=== PATIENT | female | born 1945 | race Caucasian/White ===

== ENCOUNTER 2020-08-25 09:44 | Outpatient (CLI) | payer MEDICARE, SELFPAY ==
--- NOTE | ~2020-08-25 | US_ITS ---
EXAMINATION: US thyroid DATE: 08/25/2020 10:13 INDICATION: Nontoxic single thyroid nodule. TECHNIQUE: Multiple ultrasound images of the thyroid were obtained. COMPARISON: Ultrasound 11/11/2018, 05/23/2015, 07/11/16 FINDINGS: The right thyroid lobe measures 3.8 x 1.6 x 2.4 cm. The left thyroid lobe measures 4.2 x 2.7 x 3.0 c m. In the right thyroid lobe, there is a 2.2 cm solid, isoechoic, [id number]-wpkn-rlpd nodule with lobul ated margin without echogenic foci (TI-RADS TR5), stable from 05/23/15. In the left thyroid lobe, the re is a 3.8 cm predominantly solid, isoechoic, msxdh-temx-iyrz nodule without echogenic foci (TR3) th at yielded benign pathology at fine-needle aspiration on 06/08/15, stable from 05/23/15. In the left t hyroid lobe, there is a 1.5 cm solid, hypoechoic, fkckk-jlqr-bfqr nodule with ill-defined margin with rim calcifications (TR4), stable from 05/23/15. IMPRESSION: 1. Multinodular goiter, likely benign. No follow-up is needed. Reviewed, dictated and finalized at location B. OLL EXAMINER
== END 2020-08-25 09:45 | disposition home or self-care (01) ==
LOC: ANHIMG 09:47
PROVIDERS: PCP Internal Medicine; Visit Provider Internal Medicine
DX: E04.2 Nontoxic multinodular goiter (principal)
CPT/HCPCS: 76536

== ENCOUNTER → 2023-01-01 08:16 | Outpatient (CLI) | payer MEDICARE, SELFPAY ==
--- NOTE | ~2023-01-01 | US_ITS ---
US breast RT limited DATE: 01/01/2023 08:51 INDICATION: New 4 mm nodule, lower inner quadrant of right breast, reported on November 29, 2022 outside mammogram TECHNIQUE: Targeted right breast ultrasound at 4:00 COMPARISON: November 29, 2022 bilateral mammogram with Tomosynthesis September 07, 2020 bilateral screening mammogram FINDINGS: There is an approximately 2 x 3.6 mm irregular hypoechoic lesion at 4:00. No internal vascu larity or posterior shadowing is noted. The irregular margins however are suspicious. Additionally, ezra doan mammographic mass at similar location on November 29, 2022 mammogram is new finding since September 07, 2020. Ultrasound-guided biopsy is recommended. IMPRESSION: BI-RADS Category 4: Suspicious abnormality; biopsy should be considered Recommendation: Ultrasound-guided biopsy of right breast 4:[address] Pond telephoned the report and ultrasound-guided biopsy recommendation of the right breast 4:00 l esion on January 01, 2023 at 0900 hours to Dinora at Ashia Rhodes' office Reviewed, dictated and finalized at Location A. Reviewed, dictated and finalized at location A. IMPRESSION: BI-RADS Category 4: Suspicious abnormality; biopsy should be consid ered Recommendation: Ultrasound-guided biopsy of right breast 4:[address] Pond telephoned the report and ultrasound-guided biopsy recommendation of ezra doan right breast 4:00 lesion on January 01, 2023 at 0900 hours to Dinora at Ashia cuevas' office
== END ==
PROVIDERS: PCP Internal Medicine; Visit Provider Internal Medicine
DX: R92.8 Other abnormal and inconclusive findings on diagnostic imaging of breast (principal)
CPT/HCPCS: 76642

== ENCOUNTER 2023-01-16 09:30 | Outpatient (CLI) | payer MEDICARE, SELFPAY ==
--- NOTE | ~2023-01-16 | US_ITS ---
US breast RT limited DATE: 01/16/2023 22:08 INDICATION: The patient presented for ultrasound-guided biopsy of 3 mm right 4:00 periareolar mass TECHNIQUE: Real-time and color flow imaging was performed. COMPARISON: 01/01/2023 limited right breast ultrasound FINDINGS: On the current examination the 4:00 periareolar mass appears circumscribed, measuring 2.4 x 3.7 x 2.7 mm. No irregularity or shadowing is noted. There is through transmission. There is no inte rnal vascularity on color flow imaging. The sonographic appearance is most suggestive of benign proce ss. I discussed this with the patient and recommended 6 month follow-up ultrasound imaging targeted a t this area. IMPRESSION: BI-RADS Category 3: Probably benign findings Recommendation: 6 month right targeted 4:00 periareolar ultrasound follow-up is recommended Reviewed, dictated and finalized at Location A. Reviewed, dictated and finalized at location A.
== END 2023-01-16 09:31 | disposition home or self-care (01) ==
LOC: ANHIMG 17:57
PROVIDERS: PCP Internal Medicine; Visit Provider Surgery
DX: R92.8 Other abnormal and inconclusive findings on diagnostic imaging of breast (principal)
CPT/HCPCS: 19083; 76642

== ENCOUNTER 2023-08-14 10:20 | Outpatient (CLI) | payer MEDICARE, SELFPAY ==
--- NOTE | ~2023-08-14 | MMUS_ITS ---
EXAMINATION: MM diagnostic froylan BI w annie, US breast RT limited HISTORY: Follow-up for probably benign right breast mass TECHNIQUE: Craniocaudal, mediolateral, and mediolateral oblique 3-D tomosynthesis images of the evgeny ts were performed and synthetic 2-D images were generated. CAD analysis was submitted and interpreted . High resolution limited right breast ultrasound was performed. COMPARISON: 01/16/2023, 01/01/2023, 11/29/2022, 09/07/2020, 06/12/2019 BREAST PARENCHYMAL COMPOSITION: The breasts are almost entirely fatty. FINDINGS: MAMMOGRAPHIC FINDINGS: Right breast: There is a stable 3 mm round, circumscribed, low density mass in the middle third of th e lower breast at the 4:00 location, 4.5 cm from the nipple. There has been no suspicious interval ch lm. No suspicious calcification or architectural distortion are identified. Left breast: No suspicious mass, calcification, or architectural distortion are identified to suggest malignancy. There has been no suspicious interval change. ULTRASOUND: There is a stable 3 mm x 2 mm oval, circumscribed, parallel, hypoechoic mass with no posterior or int ernal vascularity at the 4:00 location, 3 cm from the nipple. IMPRESSION: 1. Stable, probably benign right breast mass. 2. Given one year of interval stability, recommend 12 month followup bilateral diagnostic mammogram a nd ultrasound. BI-RADS category 3, probably benign findings. Reviewed, dictated and finalized at location A. ETIC COUNSELOR IMPRESSION: 1. Stable, probably benign right breast mass. 2. Given one year of interval stability, recommend 12 month followup bilateral diagnostic mammogram and ultrasound. BI-RADS category 3, probably benign findings.
== END 2023-08-14 10:21 | disposition home or self-care (01) ==
LOC: ANHIMG 10:23
PROVIDERS: PCP Internal Medicine; Visit Provider Surgery
DX: N63.10 Unspecified lump in the right breast, unspecified quadrant (principal); R92.8 Other abnormal and inconclusive findings on diagnostic imaging of breast
CPT/HCPCS: 76642; 77062; 77066; G0279

== ENCOUNTER 2024-03-27 11:21 | Outpatient (CLI) | payer MEDICARE, SELFPAY ==
--- NOTE | ~2024-03-27 | XR_ITS ---
3 VIEWS LUMBAR SPINE Ordering provider: Elbert Rhodes MD History: . M54.50 - Low back pain, unspecified . Comparison: None. FINDINGS: VERTEBRAL BODIES:Retrolisthesis at the level of L1-L2 and L2-L3. Anterolisthesis at the level of L4-L 5. Slight loss of volume of L1 and T12 most likely chronic. Osteopenia of the bones. Otherwise, No vi sible fracture or subluxation. DISK SPACES: Narrowing of the disc T12-L1, L1-L2, L2-3, L4-L5 and L5-S1. Multilevel facet joint disea se. SOFT TISSUES: Aortic calcification. IMPRESSION: No acute osseous abnormality lumbar spine. Retrolisthesis at the level of L1-L2 and L2-L3. Anterolisthesis at the level of L4-L5. Reviewed, dictated and finalized at location A.
--- NOTE | ~2024-03-27 | XR_ITS ---
XR hip RT min 2V 03/27/2024 11:52 Indication: Right hip pain Procedure: 2 views right hip Comparison: No prior studies for comparison. Findings: Severe osteoarthritis of the right hip. No fracture, subluxation or dislocation. No signifi cant soft tissue abnormality. No foreign bodies. Impression: 1: Severe osteoarthritis of the right hip. Reviewed, dictated and finalized at location B. Impression: 1: Severe osteoarthritis of the right hip.
--- NOTE | ~2024-03-27 | XR_ITS ---
XR sacroiliac joints min 3V Ordering provider: Elbert Rhodes MD History: . M54.50 - Low back pain, unspecified . Comparison: None. FINDINGS: BONES: No acute fracture or dislocation. JOINTS: Irregularity of the sacroiliac joints suggestive of sacroiliitis. Bilateral hip osteoarthriti c changes more severe on the right side. Degenerative changes of the spine. SOFT TISSUES: Unremarkable. IMPRESSION: NO ACUTE OSSEOUS ABNORMALITY. BILATERAL SACROILIITIS. Bilateral severe hip osteoarthritic changes. Reviewed, dictated and finalized at location A.
== END 2024-03-27 11:22 | disposition home or self-care (01) ==
LOC: ANHIMG 11:26
PROVIDERS: PCP Internal Medicine; Visit Provider Internal Medicine
DX: M54.50 Low back pain, unspecified (principal); G89.29 Other chronic pain; M16.0 Bilateral primary osteoarthritis of hip
CPT/HCPCS: 72110; 72202; 73502

== ENCOUNTER 2024-04-07 16:17 | Outpatient (RCR) | payer MEDICARE, SELFPAY ==
--- NOTE | 2024-04-07 17:53 | PTOPEVAL1 ---
Assessment and note entered by Kenya Levy DPT Evaluation Information Assessment Status Evaluation Diagnosis low back pain, R hip pain ICD-10 Condition Codes (PT) M54.16 Other ICD-10 Condition Codes ( m54.59 PT) Subjective Information patient reports abut 1.5 years ago she was lifting a mattress and hurt her R hip. She reports she has been going to the chiropractor and pain is on and off but lately she has not had much relief. she reports she is due for a revision of her L knee. She reports that pain varies and changes location. She reports she has pain in the groin and into the hamstring with radiating pain down to the ankle. she reports she does water aerobics for exercises. she reports pain is worse when she gets up in the morning. she reports that she will wake in the middle of the night and sitting in a chair decreases pain. she reports difficulty with getting off the toilet and getting out of a chair. she feels like she limps. Reported Pain Level Pain Score 2: Self Report Assessment PT Clinical Summary Mrs. Matute is a 78 year old female who presents to PT with low back pain that radiates to the R hip and LE. She demonstrates decreased R hip abduction , decreased lumbar mobility, decreased B LE strength and hip and lumbar arthritic changes as evidenced in x-ray imaging. She reports difficulty with getting up out of a chair, standing for long periods of time and prolonged ambulation. She would benefit from skilled PT to address impairments and return to PLOF. Plan of Care Interventions Electrical Stimulation,Gait Training,Hot Pack/Cold Pack,Manual Therapy,Mechanical Traction,Neuro Re- education,Patient/Caregiver Educati,Therapeutic Activities,Therapeutic Exercise PT Services Indicated Yes Treatment Frequency and 3x weekly for 12 visits Duration These treatments will address the objective and functional deficits as defined above. The patient will be advanced safely and appropriately in order for the patient to progress towards his/her prior level of function. Additional exercises will be introduced and as well as a comprehensive home exercise program upon discharge, if needed, ?to ensure carryover of functional gains achieved in the clinic. This treatment plan has been reviewed and agreement upon by the patient.
--- NOTE | 2024-04-29 09:26 | PTOPPROG ---
Assessment and note entered by Kane Andujar Evaluation Information Assessment Status Progress Diagnosis low back pain, right hip pain ICD-10 Condition Codes (PT) Pain in low back M54.50,Pain in right hip M25.551 Other ICD-10 Condition Codes ( m54.59 PT) Subjective Information Pt. reports she is doing better. She notices pain is less intense at the right buttock, but still present. She states that she is using her cane less, and uses mostly when she is flared up. She states that she still notices stiffness in the hip and states that she can now stand for duration of about 15-20 minutes to complete household duties. Assessment PT Clinical Summary Mrs. Matute is a 78 year old female who presents to PT with low back pain that radiates to the R hip and LE. She demonstrates decreased R hip abduction , decreased lumbar mobility, decreased B LE strength and hip and lumbar arthritic changes as evidenced in x-ray imaging. She reports difficulty with getting up out of a chair, standing for long periods of time and prolonged ambulation. She would benefit from skilled PT to address impairments and return to PLOF. Plan of Care Interventions Electrical Stimulation,Gait Training,Hot Pack/Cold Pack,Manual Therapy,Mechanical Traction,Neuro Re- education,Patient/Caregiver Educati,Therapeutic Activities,Therapeutic Exercise PT Services Indicated Yes Treatment Frequency and 3x weekly for 12 visits Duration These treatments will address the objective and functional deficits as defined above. The patient will be advanced safely and appropriately in order for the patient to progress towards his/her prior level of function. Additional exercises will be introduced and as well as a comprehensive home exercise program upon discharge, if needed, ?to ensure carryover of functional gains achieved in the clinic. This treatment plan has been reviewed and agreement upon by the patient.
--- NOTE | 2024-05-11 14:34 | PTOPDC ---
Assessment and note entered by Kane Andujar Evaluation Information Assessment Status Discharge Diagnosis low back pain, right hip pain ICD-10 Condition Codes (PT) Pain in low back M54.50,Pain in right hip M25.551 Other ICD-10 Condition Codes ( m54.59 PT) Subjective Information Pt. reports she is doing much better than before therapy. She states that she is able to stand longer and notices that the right leg is moving better. She notes improved mobility in water aerobics and is able to participate in more activities without pain. She states that she was able to mop the floor several days ago and did experience pain after, but much less intense than in the past. She reports she will continue with her HEP and is ready for discharge. Reported Pain Level Pain Score 1: Self Report Assessment PT Clinical Summary Pt. demonstrates improvements in pain reports and strength on this date. she continues to experience pain, but much less intense. At this time she is encouraged to continue with her HEP and will be discharged from our care. Plan of Care PT Services Indicated No
== END 2024-05-11 15:03 | disposition home or self-care (01) ==
LOC: CHSPT 16:17
PROVIDERS: Visit Provider Nurse Practitioner Family
DX: M54.16 Radiculopathy, lumbar region (principal); M54.59 Other low back pain
CPT/HCPCS: 97014; 97110; 97140; 97161; 97530; G0283

== ENCOUNTER 2024-04-28 08:47 | Outpatient (CLI) | payer MEDICARE, SELFPAY ==
--- NOTE | ~2024-04-28 | MMUS_ITS ---
EXAMINATION: MM diagnostic froylan RT w annie, US breast RT limited HISTORY: Palpable right breast mass TECHNIQUE: Additional 3-D tomosynthesis images of the right breast were performed and synthetic 2-D i mages were generated. CAD analysis was submitted and interpreted. High resolution Limited right breas t ultrasound was performed. COMPARISON: Comparison to multiple prior studies sequentially, with oldest reviewed study dated 02/19. BREAST PARENCHYMAL COMPOSITION: Not dense: There are scattered areas of fibroglandular density. FINDINGS: MAMMOGRAPHIC FINDINGS: There are no suspicious masses, calcifications or architectural distortion in the right breast to sug gest malignancy. ULTRASOUND: Limited right breast ultrasound: Normal heterogeneous echotexture without focal solid or cystic mass. IMPRESSION: 1. No evidence for malignancy in the right breast. 2. Routine yearly screening mammogram and regular clinical breast examination are recommended. BI-RADS Category 1: Negative Reviewed, dictated and finalized at location B. IMPRESSION: 1. No evidence for malignancy in the right breast. 2. Routine yearly screening mammogram and regular clinical breast examination a re recommended. BI-RADS Category 1: Negative
== END 2024-04-28 08:48 | disposition home or self-care (01) ==
LOC: MICIMG 08:47
PROVIDERS: PCP Internal Medicine; Visit Provider Surgery
DX: N63.10 Unspecified lump in the right breast, unspecified quadrant (principal); R92.8 Other abnormal and inconclusive findings on diagnostic imaging of breast
CPT/HCPCS: 76642; 77061; 77065; G0279

== ENCOUNTER 2024-06-17 11:00 | Outpatient (RCR) | payer MEDICARE, SELFPAY ==
--- NOTE | 2024-06-17 11:51 | OPREHPOC ---
Outpatient Therapy Plan of Care This is a Multidisciplinary Plan of Care that may contain components documented by all disciplines (PT, OT, and ST.) PT Problem 1 PT Problem #1 Knowledge Deficit PT Goal 1 Goal / Goal Update The patient will be independent in a home exercise program. Target Visit 1 Progress Met PT Problem 2 PT Problem #2 Impaired Gait PT Goal 1 Goal / Goal Update The patient will demonstrate gait with a SPC with good mechanics x 200 feet. Target Visit 1 Progress Met PT Problem 3 PT Problem #3 Impaired Functional Mobil
--- NOTE | 2024-06-17 11:51 | PTOPEVAL1 ---
Assessment and note entered by Luciana Delarosa, PT Evaluation Information Assessment Status Evaluation ICD-10 Condition Codes (PT) Pain in right hip M25.551 Subjective Information Angela Matute reports she started using a cane more over the last month due to her right hip hurting. She participated in PT at this location for right hip pain and she did get less pain in her hip. She went to her orthopedic surgeon for a consult for her right hip to be replaced and her doctor wanted her to come to PT to learn how to use her cane properly. She reports she does not use the cane all the time just when her hip is more painful, when she leaves the home, and when she feels off balance. She did not use her cane when she was coming to PT. She goes to water aerobics twice a week. Reported Pain Level Pain Score 0: Self Report Assessment PT Clinical Summary Angela Matute presents with right hip pain secondary to OA. She has participated in skilled PT at this location for 13 visits with discharge on 06/11/24. She did not use a cane at that time but has started using one more frequently so her orthopedic surgeon referred her to PT for one visit for gait training. She was educated in use of a SPC for ambulation using a step to gait pattern and demonstrates good mechanics and balance with the cane. She was discharged. Plan of Care Interventions Gait Training,Patient/Caregiver Educati PT Services Indicated Yes Treatment Frequency and 1 visit Duration These treatments will address the objective and functional deficits as defined above. The patient will be advanced safely and appropriately in order for the patient to progress towards his/her prior level of function. Additional exercises will be introduced and as well as a comprehensive home exercise program upon discharge, if needed, ?to ensure carryover of functional gains achieved in the clinic. This treatment plan has been reviewed and agreement upon by the patient.
== END 2024-06-17 12:27 | disposition home or self-care (01) ==
LOC: CHSPT 11:00
PROVIDERS: Visit Provider Orthopaedic Surgery
DX: M16.11 Unilateral primary osteoarthritis, right hip (principal)
CPT/HCPCS: 97116; 97161

== ENCOUNTER 2024-08-13 00:41 | Day surgery (SDC) | payer MEDICARE, SELFPAY ==
[2024-07-27 09:19] VITALS: BMI 40.4
[2024-08-13 08:02] VITALS: BP 118/70; PULSE 95; RESP 18; TEMP 35.9; O2SAT 100; BMI 39.2
[2024-08-13] MEDS: LACTATED RINGERS 1,000 ML 150 ML IV CONT (08:25)
[2024-08-13 08:35] LABS: Glucose Point of Care 91 mg/dl (65-105)
--- NOTE | 2024-08-13 08:40 | P.PNAN_ITS ---
Anes - Initial Pre Proc Eval Procedure: Operation Date: 08/13/24 09:30 Proposed Procedures p Screening Colonoscopy - Jayjay Rosas MD Date/Time: 08/13/24 08:40 Surgeon: Jayjay Rosas MD Pre Op Diagnosis: Screening for malignant neoplasm of colon Patient Data Age: 79 Gender: F Height: 1.47 m Weight: 85.1 kg Last Vital Signs Temp 35.9 C L 08/13/24 08:02 Pulse 95 08/13/24 08:02 Resp 18 08/13/24 08:02 BP 118/70 08/13/24 08:02 Pulse Ox 100 08/13/24 08:02 O2 Del Method Room Air 08/13/24 08:02 Allergies Allergy/AdvReac Type Severity Reaction Status Date / Time No Known Allergies Allergy Verified 08/13/24 08:18 Home Medications ?Medication ?Instructions ?Recorded ?Confirmed ?Type aspirin 81 mg tablet,delayed 81 mg PO DAILY 06/05/19 08/13/24 History release blood-glucose meter (Blood Glucose #1 ea 07/10/19 06/23/24 Rx Monitoring kit) cholecalciferol (vitamin D3) 25 1,000 unit PO DAILY 07/10/19 08/13/24 History mcg (1,000 unit) capsule folic acid 800 mcg tablet 0.8 mg PO DAILY #90 tabs 11/12/19 08/13/24 Rx mecobalamin (vitamin B12) 1,000 1,000 mcg PO DAILY #30 tabs 11/12/19 08/13/24 Rx mcg chewable tablet multivitamin 1 tablet PO DAILY 03/14/20 08/13/24 History zinc gluconate 30 mg tablet 30 mg PO DAILY 08/04/20 08/13/24 History acetaminophen 500 mg tablet 500 mg PO Q6H PRN pain 03/25/23 08/13/24 History (Tylenol Extra Strength) lancets 28 gauge (TRUEplus Lancets) #100 ea 09/09/23 06/23/24 Rx biotin 10,000 mcg chewable tablet 10,000 mcg PO DAILY hair, skin, 12/31/23 08/13/24 History (Hair, Skin and Nails (biotin)) and nails fish oil 4,000 units BYMOUTH BID 12/31/23 08/13/24 History blood sugar diagnostic (True #100 strips 01/27/24 06/23/24 Rx Metrix Glucose Test Strip) empagliflozin 5 mg-metformin ER See Rx Instructions .Route 03/02/24 08/13/24 Rx 1,000 mg tablet,extended release .COMPLEX #90 tabs 24 hr (Synjardy XR) Synthroid 50 mcg tablet See Rx Instructions .Route 03/31/24 08/13/24 Rx (levothyroxine) .COMPLEX #90 tabs atorvastatin 40 mg tablet See Rx Instructions .Route 03/31/24 08/13/24 Rx .COMPLEX #90 tabs losartan 50 mg-hydrochlorothiazide See Rx Instructions .Route 03/31/24 08/13/24 Rx 12.5 mg tablet .COMPLEX #90 tabs fluticasone propionate 50 See Rx Instructions .Route 08/09/24 08/13/24 Rx mcg/actuation nasal .COMPLEX #48 mL spray,suspension Laboratory Tests 08/13/24 08:26 POC Capillary Glucose 91 mg/dl (65-105) Patient hx anesthesia problems: none Family hx anesthesia problems: none Results Review: All pre-operative results and documents have been reviewed as part of the pre- operative evaluation. COUNTS INCLUDE 234 BEDS AT THE [facility] Past Medical History Medical History Abnormal finding of blood chemistry BMI 39.0-39.9,adult Body mass index (BMI) 40.0-44.9, adult Cataracts, bilateral Chronic low back pain Colon cancer screening Cough Diabetes DJD (degenerative joint disease), multiple sites Encounter for Medicare annual wellness exam Encounter for routine adult health examination without abnormal findings GERD (gastroesophageal reflux disease) Hearing loss Hyperlipidemia Hypertension Hypothyroid Multinodular goiter On intermediate manager drug therapy Rash Thyroid nodule Urinary incontinence Vaginal itching Vitamin D deficiency Family History Family History Sibling Carcinoma of colon Father Acute myocardial infarction Mother Family history of malignant neoplasm Social History Social History (Updated 06/10/24 @ 10:46 by Charlotte Mcgowan CMA) Smoking status: Never smoker Alcohol intake: current Substance use: never Substance use type: does not use Do You Feel Safe in your Home?: Yes Lack of Transportation: No Lack of Food: Never True Current Housing: I Have Housing Concerned About Future Housing: No Difficulty Paying Gas/Electric Bills: No Difficulty Paying for Meds: No Currently Unemployed: No Education: Trade/Vocational Certificate Difficulty w/ Childcare or Family Care: No Living arrangements: with family Gender identity (if verbalized by the patient): Female Spiritual care concerns: No Anes - Eval Final PreProcedure Day of Procedure 08/13/24 08:40 Patient weight: obese Heart: regular rate and rhythm Lungs: clear to auscultation Airway: Mallampati scale class II Neurological: alert and oriented Last oral intake: >/= 8 hours ASA classification: III Emergent: no Anesthetic plan: proceed Anesthesia type and monitoring: general GIVS and standard monitoring Results Review: All pre-operative results and documents have been reviewed as part of the pre- operative evaluation. Informed Consent: The patient's anesthetic plan and its attendant risks and benefits were discussed with the patient/family/POA. Questions were solicited and answers provided to the satisfaction of the patient/family/POA.
--- NOTE | 2024-08-13 08:59 | P.HP_ITS ---
H&P: HPI History of Present Illness Date/Time: 08/13/24 08:59 Chief Complaint: Screening colonoscopy Narrative: This patient has family history of colorectal cancer. Her sister had a pre malignant polyp surgically resected several years ago. she has been undergoing colonoscopy every 5 years, but has never had polyps herself. Review of Systems Review of Systems: All systems reviewed & are unremarkable except as noted in HPI and below PMFSH Past Medical History Medical History (Reviewed 06/10/24 @ 10:23 by Sena Schrader [facility]) Abnormal finding of blood chemistry BMI 39.0-39.9,adult Body mass index (BMI) 40.0-44.9, adult Cataracts, bilateral Chronic low back pain Colon cancer screening Cough Diabetes DJD (degenerative joint disease), multiple sites Encounter for Medicare annual wellness exam Encounter for routine adult health examination without abnormal findings GERD (gastroesophageal reflux disease) Hearing loss Hyperlipidemia Hypertension Hypothyroid Multinodular goiter On custodial drug therapy Rash Thyroid nodule Urinary incontinence Vaginal itching Vitamin D deficiency Family History Family History (Reviewed 06/10/24 @ 10:23 by Sena Schrader [facility]) Sibling Carcinoma of colon Father Acute myocardial infarction Mother Family history of malignant neoplasm Social History Social History (Updated 06/10/24 @ 10:46 by Charlotte Mcgowan CMA) Smoking status: Never smoker Alcohol intake: current Substance use: never Substance use type: does not use Do You Feel Safe in your Home?: Yes Lack of Transportation: No Lack of Food: Never True Current Housing: I Have Housing Concerned About Future Housing: No Difficulty Paying Gas/Electric Bills: No Difficulty Paying for Meds: No Currently Unemployed: No Education: Trade/Vocational Certificate Difficulty w/ Childcare or Family Care: No Living arrangements: with family Gender identity (if verbalized by the patient): Female Spiritual care concerns: No Meds Home Medications and Allergies Home Medications ?Medication ?Instructions ?Recorded ?Confirmed ?Type aspirin 81 mg tablet,delayed 81 mg PO DAILY 06/05/19 08/13/24 History release blood-glucose meter (Blood Glucose #1 ea 07/10/19 06/23/24 Rx Monitoring kit) cholecalciferol (vitamin D3) 25 1,000 unit PO DAILY 07/10/19 08/13/24 History mcg (1,000 unit) capsule folic acid 800 mcg tablet 0.8 mg PO DAILY #90 tabs 11/12/19 08/13/24 Rx mecobalamin (vitamin B12) 1,000 1,000 mcg PO DAILY #30 tabs 11/12/19 08/13/24 Rx mcg chewable tablet multivitamin 1 tablet PO DAILY 03/14/20 08/13/24 History zinc gluconate 30 mg tablet 30 mg PO DAILY 08/04/20 08/13/24 History acetaminophen 500 mg tablet 500 mg PO Q6H PRN pain 03/25/23 08/13/24 History (Tylenol Extra Strength) lancets 28 gauge (TRUEplus Lancets) #100 ea 09/09/23 06/23/24 Rx biotin 10,000 mcg chewable tablet 10,000 mcg PO DAILY hair, skin, 12/31/23 08/13/24 History (Hair, Skin and Nails (biotin)) and nails fish oil 4,000 units BYMOUTH BID 12/31/23 08/13/24 History blood sugar diagnostic (True #100 strips 01/27/24 06/23/24 Rx Metrix Glucose Test Strip) empagliflozin 5 mg-metformin ER See Rx Instructions .Route 03/02/24 08/13/24 Rx 1,000 mg tablet,extended release .COMPLEX #90 tabs 24 hr (Synjardy XR) Synthroid 50 mcg tablet See Rx Instructions .Route 03/31/24 08/13/24 Rx (levothyroxine) .COMPLEX #90 tabs atorvastatin 40 mg tablet See Rx Instructions .Route 03/31/24 08/13/24 Rx .COMPLEX #90 tabs losartan 50 mg-hydrochlorothiazide See Rx Instructions .Route 03/31/24 08/13/24 Rx 12.5 mg tablet .COMPLEX #90 tabs fluticasone propionate 50 See Rx Instructions .Route 08/09/24 08/13/24 Rx mcg/actuation nasal .COMPLEX #48 mL spray,suspension Allergies Allergy/AdvReac Type Severity Reaction Status Date / Time No Known Allergies Allergy Verified 08/13/24 08:18 Vital Signs Vital Signs - 24 hr 08/13/24 08:02 Temperature 96.7 F L Pulse Rate 95 Respiratory Rate 18 Blood Pressure 118/70 Pulse Oximetry 100 Oxygen Delivery Room Air Exam Const: General: cooperative and healthy appearing Resp: Effort & Inspection: normal respiratory effort and able to speak in complete sentences Auscultation: clear to auscultation bilaterally Cardio: Rate: regular rate Rhythm: regular rhythm GI: Inspection: normal to inspection GI Palp: No No hepatosplenomegaly present Auscultation: normal bowel sounds Rectal Exam: deferred Skin: General skin exam: normal color Psych: Appearance: grossly normal Mental Status: mental status grossly no rmal Assessment and Plan Assessment and plan (1) Family hx of colon cancer: Code(s): Z80.0 - Family history of malignant neoplasm of digestive organs Status: Acute Assessment and Plan: The patient is deemed a good candidate for the procedure. Consent signed. Will proceed.
[2024-08-13 09:24] VITALS: BP 102/65; PULSE 86; RESP 19; O2SAT 97
[2024-08-13 09:34] VITALS: BP 119/61; PULSE 91; RESP 25; O2SAT 100
[2024-08-13 09:44] VITALS: BP 118/67; PULSE 71; RESP 20; O2SAT 100
== END 2024-08-13 10:02 | disposition home or self-care (01) ==
PROVIDERS: PCP Internal Medicine; Visit Provider Internal Medicine Gastroenterology
PROC: 0DJD8ZZ Inspection of Lower Intestinal Tract, Via Natural or Artificial Opening Endoscopic (ICD-10-PCS; CPT 45378; principal; 2024-08-13 09:30)
DX: Z12.11 Encounter for screening for malignant neoplasm of colon (principal); D12.2 Benign neoplasm of ascending colon; D12.4 Benign neoplasm of descending colon; E78.5 Hyperlipidemia, unspecified; I10 Essential (primary) hypertension; E03.9 Hypothyroidism, unspecified; E55.9 Vitamin D deficiency, unspecified; E11.9 Type 2 diabetes mellitus without complications; K21.9 Gastro-esophageal reflux disease without esophagitis; M54.50 Low back pain, unspecified; G89.29 Other chronic pain; M15.9 Polyosteoarthritis, unspecified; R32 Unspecified urinary incontinence; E66.9 Obesity, unspecified; Z68.39 Body mass index [BMI] 39.0-39.9, adult; Z79.82 Long term (current) use of aspirin; Z79.84 Long term (current) use of oral hypoglycemic drugs; Z79.899 Other long term (current) drug therapy; Z80.0 Family history of malignant neoplasm of digestive organs; Z82.49 Family history of ischemic heart disease and other diseases of the circulatory system
CPT/HCPCS: 45385; 82948; 88305; J2003; J2704; J7120

== ENCOUNTER 2024-08-17 09:43 | Outpatient (CLI) | payer MEDICARE, SELFPAY ==
--- NOTE | ~2024-08-17 | MM_ITS ---
EXAMINATION: MM screening [facility] BI w annie HISTORY: Screening mammogram TECHNIQUE: Craniocaudal and mediolateral oblique 3-D tomosynthesis images were obtained and synthetic 2-D images were generated. CAD analysis was submitted and interpreted. COMPARISON: 04/28/2024, 08/14/2023, 11/29/2022, 09/07/2020 BREAST PARENCHYMAL COMPOSITION:Not Dense. There are scattered areas of fibroglandular density. FINDINGS: No suspicious mass, calcification, or architectural distortion are identified in either marley ast to suggest malignancy. There has been no suspicious interval change. IMPRESSION: No mammographic evidence of malignancy. Recommend routine screening mammography in one year. BI-RADS Category 1: Negative Reviewed, dictated and finalized at location . 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
== END 2024-08-17 09:44 | disposition home or self-care (01) ==
LOC: CHSIMG 09:45
PROVIDERS: PCP Internal Medicine; Visit Provider Surgery
DX: Z12.31 Encounter for screening mammogram for malignant neoplasm of breast (principal)
CPT/HCPCS: 77063; 77067

== ENCOUNTER 2024-08-31 07:32 | Outpatient (CLI) | payer MEDICARE, SELFPAY ==
--- NOTE | ~2024-08-31 | NM_ITS ---
EXAMINATION: NM ranjit stress w perfusion DATE: 08/31/2024 10:53 SHAREPOINT TRAINER INDICATION: Abnormal EKG TECHNIQUE: Rest images were obtained following intravenous administration of 11.5 mCi Tc99m tetrofosm in (Myoview). The patient was infused intravenously with Lexiscan (regadenoson). Then, 34 mCi Tc99m t etrofosmin (Myoview) was administered intravenously, and stress images were obtained. Data was recons tructed into short axis and horizontal and vertical long axis SPECT images. Gated SPECT images were a lso obtained. COMPARISON: None. FINDINGS: There is no definite reversible or fixed perfusion abnormality to suggest ischemia or infar ction. There is no segmental wall motion abnormality. Left ventricular ejection fraction measures 9 0%. IMPRESSION: 1. No definite ischemia or infarct. 2. Normal left ventricular ejection fraction measuring 90%. Reviewed, dictated and finalized at location A. EPOINT TRAINER
--- NOTE | 2024-08-31 07:44 | EST_ITS ---
Patient Info Name: Angela Matute Age: 79 years : 1945 Gender: Female Ht: 58 in Wt: 183 lbs BSA: 1.89 m2 HR: 87 bpm BP: 124 / 71 mmHg Exam Date: 08/31/2024 8:44 AM Exam Location: Echo Lab Patient Status: Outpatient Admit Date: 08/31/2024 Staff Ordering Physician: Elbert Rhodes MD Attending Provider: Elbert Rhodes MD Exercise Technologist: [place] [employer]IAN Exercise Physician: Edgar Brown DO Exam Type: CA stress ranjit w NM Study Info A regadenoson stress test was performed. Summary 1. 1. Negative lexiscan stress test for ischemic ST changes by ECG criteria. 2. 2. Stable hemodynamics throughout the test. 3. 3. Nuclear scan to follow and will be reported separately. Please correlate with it. 4. 4. Patient informed of the above results. Protocol: Lexiscan Stress ECG Details Stage: REST Duration (min): 0 min : 44 sec HR (bpm): 86 SBP (mmHg): 124 DBP (mmHg): 71 Stage: REST Duration (min): 6 min : 12 sec HR (bpm): 86 SBP (mmHg): 124 DBP (mmHg): 71 Stage: STAGE 1 Duration (min): 0 min : 59 sec HR (bpm): 99 SBP (mmHg): 123 DBP (mmHg): 67 Stage: RECOVERY Duration (min): 1 min : 0 sec HR (bpm): 106 SBP (mmHg): 123 DBP (mmHg): 67 Stage: RECOVERY Duration (min): 1 min : 19 sec HR (bpm): 106 SBP (mmHg): 123 DBP (mmHg): 67 Rest HR: 86 bpm Peak HR: 108 bpm Rest Sys BP: 124 mmHg Peak Sys BP: 123 mmHg Max Pred HR: 143 bpm % Max Pred HR: 76 % Target HR: 122 bpm Max RPP: 13,284 bpm*mmHg Termination Reason: Completed protocol Cardiac Symptoms: Shortness of breath Total Time: 1 min : 0 sec Rest Joseph BP: 71 mmHg Peak Joseph BP: 67 mmHg Total Dose: 0.4 mg Resting ECG Sinus rhythm. Stress ECG No ST changes. Arrhythmias None. Report Signatures
== END 2024-08-31 07:33 | disposition home or self-care (01) ==
PROVIDERS: PCP Internal Medicine; Visit Provider Internal Medicine
DX: R94.31 Abnormal electrocardiogram [ECG] [EKG] (principal)
CPT/HCPCS: 78452; 93017; A9502; J2785

== ENCOUNTER 2025-02-24 09:28 | Outpatient (CLI) | payer MEDICARE, SELFPAY ==
--- NOTE | ~2025-02-24 | DEXA_ITS ---
Bone Density Report Name: VAUGHN MARCELO Age: 79 Sex: Female Ethnicity: White Date of : 1945 Indication: postmenopausal; screening for osteoporosis; Referring Provider: IAN PONCE Study: Bone densitometry was performed. Exam Date: February 24, 2025 Accession number: [id number] Bone Density: Region BMD T-score Z-score Classification AP Spine(L1-L4) 1.047 0.0 2.5 Normal Femoral Neck (Left) 0.814 -0.3 1.9 Normal Total Hip (Left) 0.920 -0.2 1.7 Normal World Health Organization criteria for BMD impression classify patients as: Normal (T-score at or above -1.0), Osteopenia (T-score between -1.0 and -2.5), or Osteoporosis (T-score at or below -2.5). 10-year Fracture Risk: FRAX not reported because: All T-scores for Spine Total, Hip Total, Femoral Neck at or above -1.0 Clinical Information Provided by Patient: Patient maximum height was 58 Menopause Age: 60 Drinks caffeinated beverages Onset of menses at age 14 Number of children 3 Impression: The patient has normal bone mass. Discussion: BONE DENSITY IS ABOVE THE MINIMUM DESIRABLE LEVEL AT ALL SKELETAL SITES TESTED. This patient?s bone mineral density is above the minimum desirable level (T-score -1.0 or better) at all sites measured. The patient should follow a healthful lifestyle (good nutrition with adequate calcium and vitamin D, and appropriate weight-bearing exercise). Follow-Up: Consider repeating this study in 5 years or sooner if there is some new clinical indication. Reported by: SEN on 02/24/2025 9:53:00 AM. Reviewed, dictated and finalized at location A.
--- OUTSIDE RECORDS SUMMARY | 2025-02-24 09:43 | XMS_ITS | Encounter Summary ---
Author Organization [facility] Address [address] [place] [address] Care Team Providers Care Color Television Console Monitor Name Role Phone Octavio Keys MD Unavailable [phone] Elbert Rhodes MD Primary Care Provider [phone] Encounter Details Date Type Department Care Team (Late st Contact Info) Description 11/30/2015 Therapy Visit [facility] Orthopedics [address] [facility] [address] [place] [address] [place] [address] [facility] [address] [place] [address] Social History Tobacco Use Types Packs/Day Years Used Date Smoking Tobacco: Never Smokeless Tobacco: Never Alcohol Use Standard Drinks/Week Comments No 0 (1 standard drink = 0.6 oz pur e alcohol) Comments No Sex and Gender Information Value Date Recorded Sex Assigned at Not on file 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 Answer Date of Assessment Author No 11/09/2015 2:05 PM CDT Trell Chen RN * Is person blind or have serious difficulty seeing? Answer Date of Assessment Author No 11/09/2015 2:05 PM CDT Trell Chen RN * Does person have serious difficulty walking/climbing stairs? Answer Date of Assessment Author No 11/09/2015 2:05 PM WILBERTT Trell Chen RN * Does person have difficulty dressing/bathing? Answer Date of Assessment Author No 11/09/2015 2:05 PM CDT Trell Chen RN * Does person have difficulty doing errands alone? Answer Date of Assessment Author No 11/09/2015 2:05 PM Trell Starr RN documented as of this encounter Mental Status * Does person have difficulty concentrating/remembering/making decisions? Answer Entry Date Author No 11/09/2015 2:05 PM Trell Starr RN documented in this encounter Plan of Treatment Not on file documented as of this encounter Visit Diagnoses Not on filedocumented in this encounter Care Teams Color Television Console Monitor Relationship Specialty Start Date End Date Elbert Rhodes MD [address] [place] [address] [phone] PCP - General Internal Medicine 10/16/24 [place] [address] [facility] [address] [place] [id number] Orthopedic Surgery 05/05/15 documented as of this encounter
--- OUTSIDE RECORDS SUMMARY | 2025-02-24 09:43 | XMS_ITS ---
Author Organization [facility] Address [address] [facility] [address] [place], [place] [id number] Care Team Providers Care Diathermy Equipment Repairer Name Role Phone RAFI NICKY Unavailable [phone] Elbert Rhodes Unavailable Unavailable Allergies No Known Allergies REASON FOR VISIT *General care Medications Medication SIG (Take, Route, Frequency, Duration) Notes Start Date End Date Status Atorvastatin Calcium 40 MG Oral; Duration: 90 Days Active Fluticasone Propionate 50 MCG/ACT USE 2 SPRAYS IN EACH NOSTRIL EVERY DAY Nasal; Duration: 90 Days Active Losartan Potassium-HCTZ 50-12.5 MG Oral; Duration: 90 Days Acti ve Synthroid 50 MCG TAKE 1 TABLET BY RICCARDO TH EVERY DAY Oral; Duration: 90 Days Active Synjardy XR 5-1000 MG Oral; Duration: 90 Days Active Vital Signs Height 59.00 in 02/11/2025 Weight 205 lbs 02/11/2025 BMI 41.4 kg/m2 02/11/2025 Height-cm 149.86 cm 02/11/2025 Weight-kg 92.99 kg 02/11/2025 Encounters Encounter Location Date Provider Diagnosis [facility] [address] [place], [place] [id number] 02/11/2025 NICKY VILLAFANA Onychomycosis B35.1 ; Pain in right toe(s) M79.674 ; Pain in left toe(s) M79.675 and Unspecified atherosclerosis of [place] arteries of extremities, bilateral legs I70.203 Assessments Encounter Date Diagnosis (ICD Code) Assessment Notes Treatment Notes Treatment Clinical Notes Section Notes 02/11/2025 Onychomycosis (ICD-10 - B35.1) 02/11/2025 Pain in right toe(s) (ICD-10 - M79.674) 02/11/2025 Pain in left toe(s) (ICD-10 - M79.675) 02/11/2025 Unspecified atherosclerosis of [place] arteries of extremities, bilateral legs (ICD-10 - I70.203) 02/11/2025 Other Nails 1-5 Bilateral were debrided extensively with nail nippers and emery board, reducing length and girth to pink healthy tissue with any subungual debris and necrotic tissue removed Plan Of Treatment Treatment Notes Assessment Notes Other Nails 1-5 Bilateral were debrided extensively with nail nippers and emery board, reducing length and girth to pink healthy tissue with any subungual debris and necrotic tissue removed Next Appt Details Provider Name:NICKY REVELES, 04/15/2025 10:20:00 AM, [address], [address], [phone], Progress Notes * VAUGHN MARCELO KekeDOB:1945 (79 yo F)Acc No.[id number]:02/11/2025 Patient: VAUGHN ABDALLA Provider: Vanesa Villafana DPM :1945 A ge:79 Y S ex:Female Date:02/11/2025 Address:[address] [place], [place] [id number] Subjective: * Chief Complaints: * 1 . *General care. * HPI: H PI: General care P atient presents to the office for diabetic foot care. Patient states that their nails are thickened, elongated and painful. Patient states that it is aggravated by shoe gear. Onset is gradual. Patient denies taking prescription blood thinners but does take a daily aspirin. Date last seen by Dr. Meagan murray as 02/2025. Initials sea. * ROS: G eneral / Constitutional: Patient denies c hange in appetite, fatigue, chills, fever.? C ardiovascular: Chest pain d enies. N eurologic: Loss of use of extremity d enies. * Medical History: D iabetic. * Family History: F ather: PRN - Father: :: Hypertension,,known absent , :: Congenital heart disease,,known absent , :: Diabetes,,known absent ,PRN - Father: :: Stroke,,known absent , :: Hypertension,,known absent , :: Diabetes,,known absent . M other: PRN - Mother: ,PRN - Mother: :: Cancer,,known absent .?Brother: SIB - Brother: . S ister: SIB - Sister: . * Social History: M igrated Social History: M igrated Social History: History of tobacco use : , Smoking Status : Never smoked. * Medications: T aking Atorvastatin Calcium 40 MG Tablet Oral , Taking Losartan Potassium-HCTZ 50-12.5 MG Tablet Oral , Taking Fluticasone Propionate 50 MCG/ACT Suspension USE 2 SPRAYS IN EACH NOSTRIL EVERY DAY Nasal , Taking Synjardy XR 5-1000 MG Tablet Extended Release 24 Hour Oral , Taking Synthroid 50 MCG Tablet TAKE 1 TABLET BY MOUTH EVERY DAY Oral , Medication List reviewed and reconciled with the patient * Allergies: N .K.D.A. Objective: * Vitals: W t: 205 lbs, Wt-k.99 kg, Ht: 59.00 in, Ht-cm: 149.86 cm, BMI: 41.4 Index, Body Surface Area: 1.97. * Examination: P hysical Examination: Gen: T he patient is awake, alert, well developed, well groomed and well nourished. They are in no apparent distress. . Musc: F oot structure is normal bilateral. Muscle strength is 5/5 to all joints bilaterally. There is no pain on palpation. . Derm: T here is absent hair growth on bilateral feet. There are pigmentary changes of bilateral foot. The skin color is red. The skin texture is thin and shiny. Distal cooling noted in bilateral feet. Nails are thick, discolored, and dystrophic with subungual debris. They are painful to palpation. . Neuro: G rossly intact to light touch bilateral . Vasc: P osterior tibialis pulse 0/4 bilaterally. Dorsalis pedis pulse 0/4 bilaterally. No edema noted. Capillary fill time > 3 seconds to all digits. . Assessment: * Assessment: 1. O nychomycosis - B35.1 (Primary) 2 . P ain in right toe(s) - M79.674? 3. P ain in left toe(s) - M79.675 4 . U nspecified atherosclerosis of [place] arteries of extremities, bilateral legs - I70.203 Plan: * Treatment: * Procedure Codes: 1 1721 DEBRIDE NAIL, 6 OR MORE, Modifiers: Q8 * Billing Information: * Visit Code: * Procedure Codes: 61493 DEBRIDE NAIL, 6 OR MORE. Modifiers: Q8 * Electronic signature of NICKY VILLAFANA DPM on 02/24/2025 at 09:43 AM CDT Sign off status: Pending * Provider: Vanesa Villafana DPM Date: 0 02/11/2025 Generated for Reyes Fleming on: 0 02/24/2025 09:43 AM CDT History and Physical Notes * HPI (History of Present Illness) Category Sub-Category Detail Notes Category Not es HPI General care Patient presents to the office for diabetic foot care. Patient states that their nails are thickened, elongated and painful. Patient states that it is aggravated by shoe gear. Onset is gradual. Patient denies taking prescription blood thinners but does take a daily aspirin. Date last seen by Dr. Rhodes was 02/2025. Initials sea Examination Category Sub-Category Detail Notes Category Not es Physical Examination Gen: The patient is awake, alert, well developed, well groomed and well nourished. They are in no apparent distress. Vasc: Posterior tibialis p ulse 0/4 bilaterally. Dorsalis pedis pulse 0/4 bilaterally. No edema noted. Capillary fill time > 3 seconds to all digits. Neuro: Grossly intact to li ght touch bilateral Musc: Foot structure is no rmal bilateral. Muscle strength is 5/5 to all joints bilaterally. There is no pain on palpation. Derm: There is absent hair growth on bilateral feet. There are pigmentary changes of bilateral foot. The skin color is red. The skin texture is thin and shiny. Distal cooling noted in bilateral feet. Nails are thick, discolored, and dystrophic with subungual debris. They are painful to palpation.
--- OUTSIDE RECORDS SUMMARY | 2025-02-24 09:44 | XMS_ITS | Clinical Summary ---
Author Organization [facility] Address [address] [place] [address] Care Team Providers Care Farmworker Diversified Crops Name Role Phone Octavio Keys MD Unavailable [phone] Elbert Rhodes MD Primary Care Provider Source Comments [facility],non-owned Affiliates and Associated Physician Practices is amultiple site organization consisting of ambulatory clinics and hospital sitesin [place], [place], [place] and [place]. This disclosure is being madepursuant to the Care Everywhere program and may not contain all information available regarding this patient. Last updated 18.[facility] Allergies No known active allergies Medications * Be aware that medications may not be up to date on this document. Alwaysverify current medications with the patient. atorvastatin (LIPITOR) 20 MG tablet Take 2 (two) tablets by mouth at bedtime Active levothyroxine (SYNTHROID) 75 MCG tablet Take 50 mcg by mouth daily before breakfast Active losartan - hydrochlorothiazide (HYZAAR) 50-12.5 MG tablet Take 1 (one) tablet by mouth once daily Active ONETOUCH DELICA LANCETS 33G MISCIndications:Histor y of right knee joint replacement,Chronic pain of left knee TEST ONCE D 1 09/17/19 17 Active ONETOUCH ULTRA TEST STRIPS test stripIndications:Histo ry of right knee joint replacement,Chronic pain of left knee TEST BLOOD GLUCOSE ONCE D 2 09/20/19 17 Active SYNJARDY XR 5-1000 MG tablet Take 1 (one) tablet by mouth once daily 02/02/20 19 Active Multiple Vitamin (MULTI VITAMIN DAILY) TABS Take 1 tablet by mouth once daily Active folic acid 800 MCG tablet Take 1 (one) tablet by mouth once daily Active vitamin D3 (CHOLECALCIFEROL) 25 MCG (1000 UNITS) tablet Take 1 (one) tablet by mouth once daily Active Biotin 1 MG Take 1 tablet by mouth once daily Active fluticasone propionate (Flonase) 50 MCG/ACT nasal spray INSTILL 2 SPRAYS INTO EACH NOSTRIL EVERY DAY 05/11/20 24 Active acetaminophen (Tylenol) 500 MG capsule Take 2 (two) capsules by mouth 3 times daily Take 3x/day for 10 days, then as needed for pain 10/17/19 25 Active omeprazole (PriLOSEC) 20 MG capsule Take 1 (one) capsule by mouth once daily for 42 days 42 capsule 5 11:57 AM CDT 10/17/19 25 Active oxyCODONE, immediate release, (Roxicodone) 5 MG tabletIndications:Post operative pain Take 1 (one) tablet to 2 (two) tablets by mouth every 4 hours as needed for Pain (pain) 20 tablet 10/24/19 25 Active amoxicillin (Amoxil) 500 MG capsule Take 4 (four) capsules by mouth 1 Hour prior to Dental Appointment 4 capsule 3 02/23/20 25 Active Active Problems Problem Noted Date Diagnosed Date Presence of both artificial knee joints 03/01/20 23 Left knee pain 12/07/2016 Encounter for health-related screening 0 Overview (11/02/2017): Last PAP 05/01/12: normal Last MAMM 05/01/12: normal Last DXA Last Colonoscopy 2006: IMO update 11 03 2017 Hypothyroid 11/01/2009 Resolved Problems Problem Noted Date Diagnosed Date Resolved Date Hip arthritis 10/16/2024 11/30/2024 Obesity (BMI: 51.01) 11/04/2009 025 Non-Compliance with [employer] care 11/01/2009 02/19/2017 Encounters Date Type Department Care Team Description 02/22/2025 Refill [facility] [address] [place] [address], [address] [phone] Salas Ortiz IV, MD MEDICATION REFILL 02/09/2025 1:10 PM CDT Office Visit [facility] [address] [place], [place] [address], [place] [address] Octavio Keys MD Left knee pain, unspecified chronicity (Primary Dx); Chronic pain of both knees 02/09/2025 1:05 PM CDT Ancillary Procedure [facility] - Radiology [address] [place] [phone] Octavio Keys MD Chronic pain of both knees 01/11/2025 11:35 AM CDT Ancillary Procedure [facility] - Radiology [address] [place] [phone] Salas Ortiz IV, MD S/P total right hip arthroplasty 01/11/2025 10:50 AM CDT Office Visit [facility] [address] [place] [phone] Salas Ortiz IV, MD S/P total right hip arthroplasty (Primary Dx) 11/30/2024 11:05 AM CDT Ancillary Procedure [facility] - Radiology [address] [place] [phone] Silvia Harkins PA-C Acute pain of right knee 11/30/2024 10:30 AM CDT Office Visit [facility] [address] [place] [phone] Silvia Harkins PA-C S/P total right hip arthroplasty, DOS 10/16/24 (Primary Dx); Acute pain of right knee; Presence of both artificial knee joints from Last 3 Months Immunizations Immunization Administration Dates Next Due Covid Pfizer primary monoval ent 12+ yr 0.3mL Purple cap 05/16/2021,09/30/2020,09/05/2020 Family History Medical History Relation Name Comments Diabetes Father [place] Father Cancer Mother ? Relation Name Status Comments Father Mother Social History Tobacco Use Types Packs/Day Years Used Date Smoking Tobacco: Never Smokeless Tobacco: Never Alcohol Use Standard Drinks/Week Comments No 0 (1 standard drink = 0.6 oz pur e alcohol) AUDIT-C Answer Date Recorded Q1: How often do you have a drink containing alcohol? Never 10/17/2024 Q2: How many drinks containi ng alcohol do you have on a typical day when you are drinking? Patient does not drink Q3: How often do you have si x or more drinks on one occasion? Never 10/17/2024 Overall Financial Resource Strain (CARDIA) Answe r Date Recorded How hard is it for you to pa y for the very basics like food, housing, medical care, and heating? Not hard at all 10/17/2024 PHQ-2 Answer Date Recorded Patient Health Questionnaire-2 Score 1 11/09/2024 [facility] - Occupational Stress Questionnaire Answer Date Recorded Do you feel stress - tense, restless, nervous, or anxious, or unable to sleep at night because your mind is troubled all the time - these days? Not at all 10/17/2024 Hunger Vital Sign Answer Date Recorded Within the past 12 months, y ou worried that your food would run out before you got the money to buy more. Never true 10/18/19 25 Within the past 12 months, t he food you bought just didn't last and you didn't have money to get more. Never true 10/17/2024 PRAPARE - Transportation Answer Date Re corded In the past 12 months, has l ack of transportation kept you from medical appointments or from getting medications? No 10/03 In the past 12 months, has l ack of transportation kept you from meetings, work, or from getting things needed for daily living? No 10/17/2024 Housing Stability Vital Sign Answer Devin e Recorded In the last 12 months, was t here a time when you were not able to pay the mortgage or rent on time? No 10/17/2024 In the past 12 months, how m any times have you moved where you were living? 0 10/17/2024 At any time in the past 12 m [facility], were you homeless or living in a fdc (including now)? 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 Gender Identity Not on file Sexual Orientation Not on file Last Filed Vital Signs Vital Sign Reading Time Taken Comments Blood Pressure 110/70 10/18/2024 9:31 AM CDT Pulse 96 10/18/2024 9:31 AM CDT Temperature 36.8 C (98.2 F) 10/18/2024 6:24 AM CDT Respiratory Rate 18 10/17/2024 8:21 PM CDT Oxygen Saturation 97% 10/18/2024 9:31 AM CDT Inhaled Oxygen Concentration - - Weight 86.2 kg (190 lb) 02/09/2025 1:11 PM CDT Height 147.3 cm (4' 10) 02/09/2025 1:11 PM CDT Body Mass Index 39.71 02/09/2025 1:11 PM CDT Plan of Treatment Health Maintenance Due Date Last Done Comments BONE DENSITY TESTING 1945 MEDICARE AWV 12 MONTHS 1945 HEPATITIS C SCREENING 07/14/1965 DTAP/TDAP/TD VACCINES (1 - Tdap) 1966 PNEUMOCOCCAL VACCINE 50+ (1 of 2 - PCV) 1966 ZOSTER VACCINE (1 of 2) 1997 Respiratory Syncytial Virus (RSV) Vaccine Pt: or over 60 yrs (1 - 1-dose 75+ series) 2022 COVID-19 VACCINE (4 - 2023-2 5 season) 2024 05/16/2021, 09/30/2020, 09/05/2020 INFLUENZA VACCINE (#1) 2025 DEPRESSION SCREENING Completed 11/09/2024 HEPATITIS B VACCINE Aged Out No longe r eligible based on patient's age to complete this topic HIB VACCINE Aged Out No longer eligi ble based on patient's age to complete this topic HPV VACCINE Aged Out No longer eligi ble based on patient's age to complete this topic MENINGOCOCCAL (Group B) VACCINE SHARED DECISION-MAKING Aged Out No longer eligible based on patient's age to complete this topic MENINGOCOCCAL GROUPS A/C/Y/W VACCINE Aged Out No longer eligible b ased on patient's age to complete this topic Medical Devices Implanted Type Area Ferry Boat Captain Device Identifier Shelf Expiration Date Model / Serial / Lot Bone Screw Implanted:Qty: 1 on 10/16/2024 by Salas Ortiz IV, MD at [facility] Screw Right: Hip Monty [employer] 02/18/2034 [id number] / / [id number] Description:Bone screw self tapping 6.5mm Diameter 25mm length Ty Tibial I Beam Fix Bar 67mm Implanted:Qty: 1 on 11/09/2015 by Octavio Keys MD at [facility] Right: Knee [employer] Inc 06/28/2025 [id number] / / [id number] Zhao Bone [place] Hv Implanted:Qty: 1 on 11/09/2015 by Octavio Keys MD at [facility] Right: Knee [employer] 05/04/2017 [id number] / / [id number] Kn Ins Vangurd Fem Cocr R-Intlok 60mm Implanted:Qty: 1 on 11/09/2015 by Octavio Keys MD at [facility] Right: Knee [employer] Inc 07/13/2025 [id number] / / [id number] Butn Pat Arcom Wire Polyeth Xsm 28 X 8 Implanted:Qty: 1 on 11/09/2015 by Octavio Keys MD at [facility] Right: Knee [employer] 06/28/2020 [id number] / / [id number] Brdg Tib 14mm X 67mm Implanted:Qty: 1 on 11/09/2015 by Octavio Keys MD at [facility] Right: Knee [employer] Inc 04/07/2020 [id number] / / [id number] Head Fem -3mm 07/18 Tpr 32mm Hip Oxnm Implanted:Qty: 1 on 10/16/2024 by Salas Ortiz IV, MD at [facility] Right: Hip [employer] 03/28/2034 [id number] / / [id number] Shell Actb 46mm Hip 3 Hl Clr Cd [place] Implanted:Qty: 1 on 10/16/2024 by Salas Ortiz IV, MD at [facility] Right: Hip [employer] 07/15/2034 [id number] / / [id number] Acetabular System Longevity Highly Crosslinked Polyethylene Liner Implanted:Qty: 1 on 10/16/2024 by Salas Ortiz IV, MD at [facility] Right: Hip [employer] 02/01/2025 [id number] / / [id number] Stem Fem 132mm Hip 126d 1 07/18 Lat Ofst Implanted:Qty: 1 on 10/16/2024 by Salas Ortiz IV, MD at [facility] Right: Hip [employer] 10/25/2029 [id number] / / [id number] Explanted Type Area Ferry Boat Captain Device Identifier Shelf Expiration Date Model / Serial / Lot Pin Hlf 255mm 5mm Jtx Lng Orth Ss 45mm Explanted:Qty: 1 on 10/16/2024 at [facility] Right: Hip [employer] [id number] / / Procedures Procedure Name Priority Date/Time Associated Diagnosis Comments XR KNEE BILAT 3VW Routine 02/09/2025 1:0 5 PM CDT Chronic pain of both knees XR HIP RIGHT 2VW OR MORE Routine 01/11/2025 11:39 AM CDT S/P total right hip arthroplasty XR KNEE RIGHT 3VW Routine 11/30/2024 11: 06 AM CDT Acute pain of right knee from Last 3 Months Results * XR Knee Bilat 3Vw (02/09/2025 1:05 PM CDT) Narrative [facility] [address] - 02/09/2025 1:06 PM CDT Please see progress note in Epic for results. us Octavio Keys MD DIAGNOSTIC IMAGING ORDERABLES Final Result Performing Organization Address City/[facility]/ZIP Co de Phone Number [facility] [address] * XR Hip Right 2Vw or More (01/11/2025 11:39 AM CDT) Narrative [facility] [address] - 01/11/2025 11:39 AM CDT Please see progress note in Epic for results. us Salas Ortiz IV, MD DIAGNOSTIC IMAGING ORDERABLES Final Result [facility] [address] * XR Knee Right 3Vw (11/30/2024 11:06 AM CDT) Narrative [facility] [address] - 11/30/2024 11:06 AM CDT Please see progress note in Epic for results. Silvia Harkins PA-C DIAGNOSTIC IMAGING ORDERAB LES Final Result [facility] [address] from Last 3 Months Insurance MEDICARE ANTH SELF PAY NO INSURANCE Member Subscriber Plan / Payer (Ef fective for All Dates) Name:Juju Lizett Member ID:Not on file Relation to Subscriber:Not on file Name:JUJULIZETT Subscriber ID:Not on file (Home) Address: [address] [place] [address] Payer ID:Not on file Group ID:Not on file Type:Self Pay Address: [place], [place] Advance Directives * Full Code (Latest Code Status on File) Date Activated Date Inactivated Comments 10/16/2024 12:48 PM 10/18/2024 2:49 PM * Full Code Date Activated Date Inactivated Comments 11/09/2015 11:58 AM 11/12/2015 3:11 PM Care Teams Farmworker [employer] Relationship Specialty Start Date End Date Elbert Rhodes MD [address] [place] [address] PCP - General Internal Medicine 10/16/24 [place] [address] [address] Orthopedic Surgery 05/05/15
--- OUTSIDE RECORDS SUMMARY | 2025-02-24 09:44 | XMS_ITS | Clinical Summary ---
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
--- OUTSIDE RECORDS SUMMARY | 2025-02-24 09:44 | XMS_ITS | Clinical Summary ---
Author Organization [facility] Address [address] [place] [address] Care Team Providers Care Gold Letterer Name Role Phone Elbert Rhodes MD Unavailable Elbert Rhodes MD Primary Care Provider [phone] Allergies No known active allergies Medications Multiple Vitamin (MULTI VITAMIN DAILY) Tab Take 1 tablet by mouth daily. Active losartan-hydroC HLOROthiazide (HYZAAR) 50-12.5 MG tablet Take 1 tablet by mouth daily. 06/13/2022 Active SYNTHROID 50 MCG tablet Take 1 tablet by mouth daily. 06/26/2022 Active TRUEplus Safety Lancets 28G Misc USE NEW LANCET TO CHECK GLUCOSE ONCE DAILY 08/10/2022 Active TRUE METRIX BLOOD GLUCOSE TEST test strip USE NEW STRIP TO CHECK GLUCOSE ONCE DAILY 08/14/2022 Active SYNJARDY XR 5-1000 MG TABLET SR 24 HR Take 1 tablet by mouth every morning. 10/09/2021 Active fluticasone propionate (FLONASE) 50 MCG/ACT nasal spray 2 sprays by Each Nostril route as needed. 09/12/2021 Active folic acid (FOLVITE) 800 MCG tablet Take 800 mcg by mouth daily. Active vitamin D3, cholecalciferol , 1000 UNIT Tab tablet Take 1,000 Units by mouth daily. Active Biotin 1 MG Cap Take 1 tablet by mouth daily. Active aspirin EC 81 MG tablet Take 81 mg by mouth daily. Active atorvastatin (LIPITOR) 40 MG tablet Take 1 tablet by mouth daily. 06/26/2022 Active vitamin B-12 (CYANOCOBALAMIN ) (CYANOCOBALAMIN ) 1000 mcg tablet Take 1,000 mcg by mouth daily. Active [place]-3 Fatty Acids (FISH OIL BURP-LESS) 1000 MG Cap Take 4 capsules by mouth daily. Active Active Problems No known active problems Family History Medical History Relation Comments Diabetes Father Heart Disease Father Cancer Mother Relation Status Comments Father Mother Social History Tobacco Use Types Packs/Day Years Used Date Smoking Tobacco: Never Passive Smoke Exposure: Past Smokeless Tobacco: Never Tobacco Cessation:Counseling Given: No Comments:Never Smoked Alcohol Use Standard Drinks/Week Comments Not Currently 0 (1 standard drink = 0.6 oz pur e alcohol) Not Usually PHQ-2 Answer Date Recorded Patient Health Questionnaire-2 Score 0 09/10/2022 Comments No Sex and Gender Information Value Date Recorded Sex Assigned at Not on file Legal Sex Female 7:11 PM CDT Gender Identity Not on file Sexual Orientation Not on file Last Filed Vital Signs Vital Sign Reading Time Taken Comments Blood Pressure 136/74 09/10/2022 1:20 PM RESIDENTIAL SUBSTANCE ABUSE COUNSELOR Pulse 82 09/10/2022 1:20 PM RESIDENTIAL SUBSTANCE ABUSE COUNSELOR Temperature 36.4 C (97.5 F) 09/10/2022 1:20 PM RESIDENTIAL SUBSTANCE ABUSE COUNSELOR Respiratory Rate 18 09/10/2022 1:20 PM RESIDENTIAL SUBSTANCE ABUSE COUNSELOR Oxygen Saturation 100% 09/10/2022 1:20 PM RESIDENTIAL SUBSTANCE ABUSE COUNSELOR Inhaled Oxygen Concentration - - Weight 92 kg (202 lb 12.8 oz) 09/10/2022 1:20 PM RESIDENTIAL SUBSTANCE ABUSE COUNSELOR Height 148.6 cm (4' 10.5) 09/10/2022 1:20 PM CS T Body Mass Index 41.66 09/10/2022 1:20 PM RESIDENTIAL SUBSTANCE ABUSE COUNSELOR Plan of Treatment Health Maintenance Due Date Last Done Comments Hepatitis C 1963 DTaP, Tdap and Td Vaccines ( 1 - Tdap) 1966 Pneumococcal Vaccine: 50+ Years (1 of 1 - PCV) 1997 Zoster Vaccines (1 of 2) 1997 Annual Medicare Wellness Visit 2012 Dexa Scan (General) 2012 RSV Immunization or 60+ Years (1 - 1-dose 75+ series) 2022 COVID-19 Vaccine (4 - 2023-2 5 season) 2024 05/17/2021, 09/27/2020, 09/06/2020 Meningococcal B Vaccine Aged Out No l onger eligible based on patient's age to complete this topic Meningococcal Vaccine Aged Out No gracia flor eligible based on patient's age to complete this topic RSV Immunizations Under 20 Months Aged Out No longer eligible b ased on patient's age to complete this topic Insurance MEDICARE [facility] Care Teams Gold Letterer Relationship Specialty Start Date End Date Elbert Rhodes MD [address] [place] [id number] PCP - General INTERNAL MEDICINE 09/26/22 Elbert Rhodes MD [address] [place] [phone] INTERNAL MEDICINE 09/18/22
--- OUTSIDE RECORDS SUMMARY | 2025-02-24 09:44 | XMS_ITS | Patient Health Record ---
Author Organization [facility] Address [address] [place], [place] [id number] Care Team Providers Care Tile Mechanic Helper Name Role Phone NICKY MCKEE Unavailable [phone] Elbert Rhodes Unavailable Unavailable Allergies No Known Allergies Reason For Referral No Information Medications Medication SIG (Take, Route, Frequency, Duration) [...] 5-1000 MG Oral; Duration: 90 Days Active Immunizations Vaccine Route Administration Date Status Comme nts Pfizer-Biontech Covid-19 Vac cine 1st dose Unknown 09/05/2020 Administered Pfizer-Biontech Covid-19 Vac cine 1st dose Unknown 09/30/2020 Administered Pfizer-Biontech Covid-19 Vac cine 1st dose Unknown 05/16/2021 Administered Vital Signs Height-cm 149.86 cm 02/11/2025 Weight-kg 92.99 kg 02/11/2025 Height 59.00 in 02/11/2025 Weight 205 lbs 02/11/2025 BMI 41.4 kg/m2 02/11/2025 Encounters Encounter Location Date Provider Diagnosis [facility] [address] [place], [place] [id number] 02/11/2025 NICKY MCKEE Onychomycosis B35.1 ; Pain in right toe(s) M79.674 ; Pain in left toe(s) M79.[address] of [place] arteries of extremities, bilateral legs I70.203 [facility] [address] [place] [address] [id number] 03/26/2024 NICKYNAUN MCKEE Onychomycosis B35.1 ; Pain in right toe(s) M79.674 ; Pain in left toe(s) M79.[address] of [place] arteries of extremities, bilateral legs I70.203 [facility] Nikki [address] [place] [address] [id number] 05/28/2024 NICKY BALDEVBURG Onychomycosis B35.1 ; Pain in right toe(s) M79.674 ; Pain in left toe(s) M79.[address] of [place] arteries of extremities, bilateral legs I70.203 [facility] [address] [place] [address] [id number] 07/30/2024 NICKY BALDEVBURG Onychomycosis B35.1 ; Pain in right toe(s) M79.674 ; Pain in left toe(s) M79.675 and [address] of [place] arteries of extremities, bilateral legs I70.203 [facility] Nikki [address] [place] [address] [id number] 10/01/2024 NICKY RAFI Onychomycosis B35.1 ; Pain in right toe(s) M79.674 ; Pain in left toe(s) M79.675 and [address] of [place] arteries of extremities, bilateral legs I70.203 [facility] Nikki [address] [place] [address] [id number] 12/10/2024 NICKY YOELTENBURG Onychomycosis B35.1 ; Pain in right toe(s) M79.674 ; Pain in left toe(s) M79.[address] of [place] arteries of extremities, bilateral legs I70.203 Assessments Encounter Date Diagnosis (ICD Code) Assessment Notes Treatment Notes Treatment Clinical Notes Section Notes 03/26/2024 Onychomycosis (ICD-10 - B35.1) 05/28/2024 Onychomycosis (ICD-10 - B35.1) 07/30/2024 Onychomycosis (ICD-10 - B35.1) 10/01/2024 Onychomycosis (ICD-10 - B35.1) 12/10/2024 Onychomycosis (ICD-10 - B35.1) 02/11/2025 Onychomycosis (ICD-10 - B35.1) 02/11/2025 Pain in right toe(s) (ICD-10 - M79.674) 12/10/2024 Pain in right toe(s) (ICD-10 - M79.674) 10/01/2024 Pain in right toe(s) (ICD-10 - M79.674) 07/30/2024 Pain in right toe(s) (ICD-10 - M79.674) 05/28/2024 Pain in right toe(s) (ICD-10 - M79.674) 03/26/2024 Pain in right toe(s) (ICD-10 - M79.674) 03/26/2024 Pain in left toe(s) (ICD-10 - M79.675) 05/28/2024 Pain in left toe(s) (ICD-10 - M79.675) 07/30/2024 Pain in left toe(s) (ICD-10 - M79.675) 10/01/2024 Pain in left toe(s) (ICD-10 - M79.675) 12/10/2024 Pain in left toe(s) (ICD-10 - M79.675) 02/11/2025 Pain in left toe(s) (ICD-10 - M79.675) 02/11/[address] [place] arteries of extremities, bilateral legs (ICD-10 - I70.203) 12/10/[address] [place] arteries of extremities, bilateral legs (ICD-10 - I70.203) 10/01/[address] [place] arteries of extremities, bilateral legs (ICD-10 - I70.203) 07/30/[address] [place] arteries of extremities, bilateral legs (ICD-10 - I70.203) 05/28/[address] [place] arteries of extremities, bilateral legs (ICD-10 - I70.203) 03/26/[address] [place] arteries of extremities, bilateral legs (ICD-10 - I70.203) 02/11/2025 Other Nails 1-5 Bilateral were debrided extensively with nail nippers and emery board, reducing length and girth to pink healthy tissue with any subungual debris and necrotic tissue removed 03/26/2024 Other Nails 1-5 Bilateral were debrided extensively with nail nippers and emery board, reducing length and girth to pink healthy tissue with any subungual debris and necrotic tissue removed 05/28/2024 Other Nails 1-5 Bilateral were debrided extensively with nail nippers and emery board, reducing length and girth to pink healthy tissue with any subungual debris and necrotic tissue removed 07/30/2024 Other Nails 1-5 Bilateral were debrided extensively with nail nippers and emery board, reducing length and girth to pink healthy tissue with any subungual debris and necrotic tissue removed 10/01/2024 Other Nails 1-5 Bilateral were debrided extensively with nail nippers and emery board, reducing length and girth to pink healthy tissue with any subungual debris and necrotic tissue removed 12/10/2024 Other Nails 1-5 Bilateral were debrided extensively with nail nippers and emery board, reducing length and girth to pink healthy tissue with any subungual debris and necrotic tissue removed Plan Of Treatment Next Appt Details Provider Name:NICKY Tenzin REVELES, 04/15/2025 10:20:00 AM, [address], [facility], [place], [place], [id number], Insurance Providers Payer Name Payer Address Payer Phone Subscriber Number Group Number Insured Name Patient Relationship to Insured Coverage Start Date Coverage End Date Medicare Part B [place] [address] [place] [address] [id number] VAUGHN MARCELO Self - patient is the insured [facility] ([facility]) ATTN CLAIMS [address] [place] [address] [id number] VAUGHN MARCELO Self - patient is the insured Medical (General) History Medical History History ICD Code Diabetic
== END 2025-02-24 09:29 | disposition home or self-care (01) ==
PROVIDERS: PCP Internal Medicine; Visit Provider Internal Medicine
DX: Z78.0 Asymptomatic menopausal state (principal)
CPT/HCPCS: 77080